=== PATIENT | male | born 1955 | race Caucasian/White ===

== ENCOUNTER → 2020-07-11 14:55 | Outpatient (CLI) | payer OTHER, SELFPAY ==
--- NOTE | 2020-07-11 15:01 | DI.RAD.S_ITS ---
PROCEDURE: XR THORACIC SPINE 2V INDICATIONS: BACK PAIN TECHNIQUE: 3 views of the thoracic spine were acquired. COMPARISON: None. FINDINGS: Bones: No fractures or dislocations. No suspicious bony lesions. 12 pairs of ribs are noted, and appear intact where visualized. Trace dextroscoliosis centered at the mid to lower thoracic level. Mild multilevel disc degeneration. Soft tissues: No paravertebral stripe thickening. IMPRESSION: Mild multilevel disc degeneration. Dictated by: Kyle Joy [facility] Interpreted: Yuliya Bailey MD on 07/11/2020 at 15:31 Approved by: Yuliya Bailey MD, PhD on 07/11/2020 at 16:29
== END ==
PROVIDERS: PCP Nurse Practitioner Family; Referring Provider Nurse Practitioner Family; Visit Provider Nurse Practitioner Family
DX: M51.34 Other intervertebral disc degeneration, thoracic region (principal)
CPT/HCPCS: 72070

== ENCOUNTER → 2020-07-29 13:43 | Outpatient (CLI) | payer OTHER, SELFPAY ==
--- NOTE | 2020-07-29 | DI.ECHO.S_ITS ---
[facility] +---------+ : : [address] : [place] : : : : [id number] : : : : Phone: [phone] Echocardiogram Report + + :Name: JESSE CRAWFORD Study Date: 07/29/2020 Height: 69 in : :[facility] ReadingLocation: Weight: 165 lb : : Gender: Male BSA: 1.9 m2 : :: 1955 Age: 64 yrs BP: 169/96 mmHg: :Reason For Study: ATRIAL PREMATURE DEPOLARIZATION : :Ordering Physician: THOMPSON BHAT Performed By: Ashley Irwin : :Referring: THOMPSON BHTA : + + Interpretation Summary The left ventricle is normal in size and wall thickness. Left ventricular systolic function appears normal without focal wall motion abnormalities. The ejection fraction is estimated to be 60-65%. Diastolic parameters suggest probable normal left ventricular diastolic function and normal filling pressures. The right ventricle is normal in size and function. Pulmonary artery pressures cannot be estimated because of the lack of a measurable TR jet velocity but the IVC suggests a CVP of around 3 mmHg. Right atrial size is normal. The left atrium is borderline dilated. There is mild mitral regurgitation. There is no other significant valvular heart disease. The aortic root is normal size. Procedure: A two-dimensional transthoracic echocardiogram with color flow and Doppler was performed. The study quality was technically adequate. There is no prior echocardiogram noted for this patient. The patient had frequent PACs during the exam. The heart rate ranged between 60-78 bpm during the study. Left Ventricle: The left ventricle is normal in size and wall thickness. Left ventricular systolic function appears normal without focal wall motion abnormalities. The ejection fraction is estimated to be 60-65%. Diastolic parameters suggest probable normal left ventricular diastolic function and normal filling pressures. Right Ventricle: The right ventricle is normal in size and function. Atria: The left atrium is borderline dilated. Right atrial size is normal. There is no Doppler evidence for an interatrial shunt. Mitral Valve: The mitral valve is normal in structure and function. There is mild mitral regurgitation. Aortic Valve: The aortic valve is trileaflet. The aortic valve opens well. There is no aortic valve stenosis. There is trace aortic regurgitation. Tricuspid Valve: The tricuspid valve is normal in structure and function. There is trace tricuspid regurgitation. Pulmonary artery pressures cannot be estimated because of the lack of a measurable TR jet velocity but the IVC suggests a CVP of around 3 mmHg. Pulmonic Valve: The pulmonic valve leaflets are thin and pliable; valve motion is normal. There is no pulmonic valvular regurgitation. There is no other significant valvular heart disease. Great Vessels: The aortic root is normal size. The dimensions of the ascending aorta are normal. The IVC is of normal diameter and collapses greater than 50% with a sniff. This suggests a low right atrial pressure of 3 mm Hg. Pericardium/ Pleura There is no pericardial effusion. There is no pleural effusion. MMode/2D Measurements & Calculations LVIDd: 4.8 cm LVOT diam: 2.2 cm LVIDs: 3.3 cm Ao root diam: 3.1 cm FS: 32.7 % asc Aorta Diam: 3.3 cm EPSS: 0.75 cm Ao Arch Diam (Prox Trans): 2.4 cm IVSd: 1.0 cm LVPWd: 0.87 cm LV pradhan. diameter/BSA (cm/m^2): 2.5 LV sys. diameter/BSA (cm/m^2): 1.7 LA A2 area: 20.0 cm2 RA long axis: 4.9 cm LA A4 area: 16.3 cm2 RA area: 16.8 cm2 LA length (vol): 4.4 cm RA vol: 48.7 ml LA vol: 62.6 ml RA : 25.6 ml/m2 LA vol index: 32.9 ml/m2 IVC diam: 1.3 cm RVD1 (basal): 3.2 cm TAPSE: 1.8 cm Doppler Measurements & Calculations Ao V2 max: 116.8 cm/sec LVOT Max Mehran: 69.5 cm/sec Ao V2 mean: 80.5 cm/sec LV V1 max P.9 mmHg Ao max P.5 mmHg LV V1 VTI: 15.2 cm Ao mean P.0 mmHg MIGEL(I,D): 2.3 cm2 Ao V2 VTI: 24.3 cm MIGEL(V,D): 2.2 cm2 sev ratio: 0.62 MIGEL indexed to BSA (cm^2/m^2): 1.2 MV E max mehran: 59.5 cm/sec PA V2 max: 95.1 cm/sec MV A max mehran: 59.5 cm/sec PA V2 mean: 69.1 cm/sec MV E/A: 1.0 PA mean P.2 mmHg Med Peak E' Mehran: 8.2 cm/sec PA pr(Accel): 29.3 mmHg E/E' med: 7.3 Lat Peak E' Mehran: 6.4 cm/sec E/E' lat: 9.3 E/e' average: 8.3 MV dec time: 0.21 sec SV(LVOT): 55.6 ml Reading Physician:07:30 PM
== END ==
PROVIDERS: PCP Nurse Practitioner Family; Referring Provider Nurse Practitioner Family; Visit Provider Nurse Practitioner Family
DX: I34.0 Nonrheumatic mitral (valve) insufficiency (principal); I49.1 Atrial premature depolarization
CPT/HCPCS: 93306

== ENCOUNTER 2022-02-17 15:39 | Emergency (ER) | payer OTHER, SELFPAY ==
[2022-02-17 15:42] VITALS: PULSE 62; RESP 20; TEMP 36.6; O2SAT 99
--- NOTE | 2022-02-17 15:53 | DI.RAD.S_ITS ---
PROCEDURE: XR CHEST 1V INDICATIONS: chest pain TECHNIQUE: One view of the chest was acquired. COMPARISON: None. FINDINGS: Surgical changes and devices: None. Lungs and pleura: Lungs are clear. No pleural effusions or pneumothorax. Mediastinum: Mediastinal contours appear normal. Heart size is normal. Bones and chest wall: No suspicious bony lesions. Overlying soft tissues appear unremarkable. IMPRESSION: No acute cardiopulmonary findings Approved by: Arya Villafuerte M.D. on 02/17/2022 at 16:26
[2022-02-17 15:57] VITALS: BP 211/104
[2022-02-17 16:07] LABS: Add Manual Diff / Slide Review NO; Basophils Absolute Auto 0 /uL (0-100); Basophils Percent Auto 0.5 % (0-2); Eosinophils Absolute Auto 200 /uL (0-450); Hematocrit 43.6 % (41-53); Lymphocytes Absolute Auto 2500 /uL (1100-4500); Lymphocytes Percent Auto 26.7 % (25-40); Mean Corpuscular HGB Conc 34.5 % (30-36); Mean Corpuscular Hemoglobin 30.3 PG (26-34); Mean Corpuscular Volume 87.8 fL (80-100); Monocytes Absolute Auto 900 /uL (0-900); Monocytes Percent Auto 9.2 % (3-14); Neutrophils Absolute Auto 5900 /uL (1500-7000); Neutrophils Percent Auto 61.6 % (50-75); Platelet Count 303 X10^3/uL (150-400); Red Blood Cell Count 4.97 X10^6/uL (4.5-5.9); Red Cell Distribution Width 12.3 % (11.6-14.8); White Blood Cell Count 9.5 X10^3/uL (4.5-11.0)
[2022-02-17 16:24] LABS: Alanine Aminotransferase 26 IU/L (<50); Albumin 4.6 g/dL (3.5-5.0); Albumin Globulin Ratio 1.4 (1.0-2.8); Alkaline Phosphatase 102 U/L (38-126); Aspartate Aminotransferase 33 IU/L (17-59); BUN Creatinine Ratio 21.6 (6-22); Bilirubin Total 0.4 mg/dL (0.2-1.3); Blood Urea Nitrogen 19 mg/dL (9-20); Calcium 9.1 mg/dL (8.4-10.2); Carbon Dioxide 24 mmol/L (22-32); Chloride 102 mmol/L (98-107); Creatine Kinase 60 U/L (55-170); Estimated Glomerular Filt Rate > 60 mL/min (>60); Globulin 3.4 g/dL (1.7-4.1); Glucose 88 mg/dL (80-110); HEMOLYSIS < 15 (0-50); Lipase 178 U/L (23-300); Magnesium 2.1 mg/dL (1.6-2.3); Sodium 139 mmol/L (137-145)
[2022-02-17 16:35] LABS: Troponin I < 0.012 ng/mL (0.01-0.034)
--- NOTE | 2022-02-17 16:38 | ED_ITS ---
HPI - Chest Pain <JONE Oquendo - Last Filed: 02/17/22 20:29> General Chief Complaint: Chest Pain Stated Complaint: Heart attack symptoms Time Seen by Provider: 02/17/22 16:24 Source: patient Mode of arrival: Ambulatory History of Present Illness HPI narrative: This is a 66-year-old male with history of hyperlipidemia, hypertension who presents to the emergency department with acute onset of chest pressure, tingling to his fingertips bilaterally, and scalp during this episode chest pressure. He states this happened just prior to his arrival after an episode of resting on the couch, he stood up and felt this sensation. He states that this has never happened to him before he takes losartan 25 mg q.h.s. between 6 and 20:00, has not taken his dose today. He denies history of blood clot or cardiac event in the past. He is currently hypertensive in triage he was 211/104, currently he is 194/106. Related Data Home Medications Medication Instructions Recorded Confirmed atorvastatin 10 mg tablet 10 mg PO DAILY 10/30/20 10/30/20 losartan 25 mg tablet 25 mg PO DAILY 10/30/20 10/30/20 tamsulosin 0.4 mg capsule (Flomax) 0.4 mg PO DAILY 10/30/20 10/30/20 Allergies Allergy/AdvReac Type Severity Reaction Status Date / Time No Known Drug Allergies Allergy Verified 11/05/18 09:54 Patient History <JONE Oquendo - Last Filed: 02/17/22 20:29> Medical History (Updated 02/17/22 @ 18:45 by JONE Oquendo) Erectile dysfunction due to psychophysiologic disorder Nocturia Surgical History Hx of circumcision Social History marital status: occupational status: employed Smoking Status: Never smoker alcohol intake: current Type(s) of exercise: weight lifting frequency: 3-4 times per week Smoking Status: Never smoker alcohol intake frequency: 0-2 drinks per day Exam <JONE Oquendo - Last Filed: 02/17/22 20:29> Initial Vital Signs Initial Vital Signs: Vital Signs Temperature 97.9 F 02/17/22 15:42 Pulse Rate 62 02/17/22 15:42 Respiratory Rate 20 02/17/22 15:42 Pulse Oximetry 99 02/17/22 15:42 Oxygen Delivery Method 02/17/22 15:42 <Otoniel Aguiar DO - Last Filed: 02/20/22 17:56> Initial Vital Signs Initial Vital Signs: Vital Signs Temperature 97.9 F 02/17/22 15:42 Pulse Rate 62 02/17/22 15:42 Respiratory Rate 20 02/17/22 15:42 Pulse Oximetry 99 02/17/22 15:42 Oxygen Delivery Method 02/17/22 15:42 Scores <JONE Oquendo - Last Filed: 02/17/22 20:29> HEART Score Heart Score history: Moderately Suspicious Heart Score EKG: Normal Heart Score Age: 45-64 years old Heart Score risk factors: 1-2 risk factors Heart Score troponin: < or = to normal limit Heart Score Total: 3 PERC Score Age greater than or equal to 50 years: Yes Heart rate greater than or equal to 100 bpm: No Room Air O2 Sat less than 95%: No Unilateral leg swelling: No Recent trauma or surgery: No Hemoptysis: No Prior PE or DVT: No Hormone Use: No Total PERC Score: 1 Wells' Criteria for PE Clinical signs and symptoms of DVT: No PE is #1 Dx or equally likely: No <Otoniel Aguiar DO - Last Filed: 02/20/22 17:56> HEART Score Heart Score Total: 3 PERC Score Total PERC Score: 1 Course <JONE Oquendo - Last Filed: 02/17/22 20:29> Orders Ordered: Discontinued Medications Aspirin (Aspirin 325 Mg Tablet) 325 mg PO NOW ONE Stop: 02/17/22 16:38 Last Admin: 02/17/22 16:54 Dose: Not Given Documented By: RAJ Aspirin (Aspirin 81 Mg Chew Tab) 324 mg PO NOW ONE Stop: 02/17/22 16:52 Last Admin: 02/17/22 17:01 Dose: 324 mg Documented By: JAVIER Losartan Potassium (Losartan 25 Mg Tablet) 25 mg PO NOW ONE Stop: 02/17/22 16:38 Last Admin: 02/17/22 17:01 Dose: 25 mg Documented By: JAVIER Vital Signs Vital signs: Vital Signs - 8 hr 02/17/22 15:42 02/17/22 15:57 02/17/22 17:01 Temperature 97.9 F Pulse Rate 62 50 L Respiratory Rate 20 Blood Pressure 211/104 H 197/93 H Pulse Oximetry 99 Oxygen Delivery Method Room Air 02/17/22 17:05 02/17/22 17:45 02/17/22 20:07 Temperature Pulse Rate 50 L 55 L 80 Respiratory Rate 20 12 16 Blood Pressure 197/93 H 187/90 H 190/80 H Pulse Oximetry 97 99 99 Oxygen Delivery Method Room Air Room Air Room Air <Otoniel Aguiar DO - Last Filed: 02/20/22 17:56> Orders Ordered: Discontinued Medications Aspirin (Aspirin 325 Mg Tablet) 325 mg PO NOW ONE Stop: 02/17/22 16:38 Last Admin: 02/17/22 16:54 Dose: Not Given Documented By: RAJ Aspirin (Aspirin 81 Mg Chew Tab) 324 mg PO NOW ONE Stop: 02/17/22 16:52 Last Admin: 02/17/22 17:01 Dose: 324 mg Documented By: JAVIER Losartan Potassium (Losartan 25 Mg Tablet) 25 mg PO NOW ONE Stop: 02/17/22 16:38 Last Admin: 02/17/22 17:01 Dose: 25 mg Documented By: JAVIER Vital Signs Vital signs: Vital Signs - 8 hr 02/17/22 15:42 02/17/22 15:57 02/17/22 17:01 Temperature 97.9 F Pulse Rate 62 50 L Respiratory Rate 20 Blood Pressure 211/104 H 197/93 H Pulse Oximetry 99 Oxygen Delivery Method Room Air 02/17/22 17:05 02/17/22 17:45 02/17/22 20:07 Temperature Pulse Rate 50 L 55 L 80 Respiratory Rate 20 12 16 Blood Pressure 197/93 H 187/90 H 190/80 H Pulse Oximetry 97 99 99 Oxygen Delivery Method Room Air Room Air Room Air MDM - Chest Pain <JONE Oquendo - Last Filed: 02/17/22 20:29> Lab Data Result diagrams: 02/17/22 15:50 02/17/22 15:50 Labs: Lab Results 02/17/22 02/17/22 02/17/22 Range/Units 15:50 15:50 15:50 WBC 9.5 (4.5-11.0) X10^3/uL RBC 4.97 (4.5-5.9) X10^6/uL Hgb 15.0 (13.5-17.5) g/dL Hct 43.6 (41-53) % MCV 87.8 (80-100) fL MCH 30.3 (26-34) PG MCHC 34.5 (30-36) % RDW 12.3 (11.6-14.8) % Plt Count 303 (150-400) X10^3/uL Neut % (Auto) 61.6 (50-75) % Lymph % (Auto) 26.7 (25-40) % [place] % (Auto) 9.2 (3-14) % Eos % (Auto) 2.0 (2-4) % Baso % (Auto) 0.5 (0-2) % Neut # (Auto) 5900 (1855-7828) /uL Lymph # (Auto) 2500 (4449-0909) /uL [place] # (Auto) 900 (0-900) /uL Eos # (Auto) 200 (0-450) /uL Baso # (Auto) 0 (0-100) /uL D-Dimer 756 H (<500) ng/ml Sodium 139 (137-145) mmol/L Potassium 4.0 (3.4-5.1) mmol/L Chloride 102 (98-107) mmol/L Carbon Dioxide 24 (22-32) mmol/L BUN 19 (9-20) mg/dL Creatinine 0.88 (0.66-1.25) mg/dL Estimated GFR > 60 (>60) mL/min BUN/Creatinine Ratio 21.6 (6-22) Glucose 88 (80-110) mg/dL Calcium 9.1 (8.4-10.2) mg/dL Magnesium 2.1 (1.6-2.3) mg/dL Total Bilirubin 0.4 (0.2-1.3) mg/dL AST 33 (17-59) IU/L ALT 26 (<50) IU/L Alkaline Phosphatase 102 (38-126) U/L Total Creatine Kinase 60 (55-170) U/L CK-MB (CK-2) TNP CK-MB (CK-2) Rel Index TNP Troponin I < 0.012 (0.01-0.034) ng/mL NT-Pro-B Natriuret Pep (<125) pg/mL Total Protein 8.0 (6.3-8.2) g/dL Albumin 4.6 (3.5-5.0) g/dL Globulin 3.4 (1.7-4.1) g/dL Albumin/Globulin Ratio 1.4 (1.0-2.8) Lipase 178 (23-300) U/L 02/17/22 02/17/22 Range/Units 15:50 18:10 WBC (4.5-11.0) X10^3/uL RBC (4.5-5.9) X10^6/uL Hgb (13.5-17.5) g/dL Hct (41-53) % MCV (80-100) fL MCH (26-34) PG MCHC (30-36) % RDW (11.6-14.8) % Plt Count (150-400) X10^3/uL Neut % (Auto) (50-75) % Lymph % (Auto) (25-40) % [place] % (Auto) (3-14) % Eos % (Auto) (2-4) % Baso % (Auto) (0-2) % Neut # (Auto) (5365-7072) /uL Lymph # (Auto) (4380-1376) /uL [place] # (Auto) (0-900) /uL Eos # (Auto) (0-450) /uL Baso # (Auto) (0-100) /uL D-Dimer (<500) ng/ml Sodium (137-145) mmol/L Potassium (3.4-5.1) mmol/L Chloride (98-107) mmol/L Carbon Dioxide (22-32) mmol/L BUN (9-20) mg/dL Creatinine (0.66-1.25) mg/dL Estimated GFR (>60) mL/min BUN/Creatinine Ratio (6-22) Glucose (80-110) mg/dL Calcium (8.4-10.2) mg/dL Magnesium (1.6-2.3) mg/dL Total Bilirubin (0.2-1.3) mg/dL AST (17-59) IU/L ALT (<50) IU/L Alkaline Phosphatase (38-126) U/L Total Creatine Kinase 63 (55-170) U/L CK-MB (CK-2) TNP CK-MB (CK-2) Rel Index TNP Troponin I < 0.012 (0.01-0.034) ng/mL NT-Pro-B Natriuret Pep 70 (<125) pg/mL Total Protein (6.3-8.2) g/dL Albumin (3.5-5.0) g/dL Globulin (1.7-4.1) g/dL Albumin/Globulin Ratio (1.0-2.8) Lipase (23-300) U/L Imaging Data Chest x-ray: Radiologist's Impression: PROCEDURE:? XR CHEST 1V ? INDICATIONS:? chest pain ? TECHNIQUE:? One view of the chest was acquired.? ? COMPARISON:? None. ? FINDINGS:? ? Surgical changes and devices:? None.? ? Lungs and pleura:? Lungs are clear.? No pleural effusions or pneumothorax.? ? Mediastinum:? Mediastinal contours appear normal.? Heart size is normal.? ? Bones and chest wall:? No suspicious bony lesions.? Overlying soft tissues appear unremarkable.? ? IMPRESSION:? No acute cardiopulmonary findings ? ? ? Approved by: Arya Villafuerte M.D. on 02/17/2022 at 16:26? Chest CTA: Radiologist's Impression: There was an error with CTA report, initially the wrong patient's report was a ppended to the chart. This has now since been resolved but is unable to be appended from [email or web address]. Impression from the CTA chest is unremarkable CT angiogram of the chest without evidence of pulmonary embolism, aortic dissection or aneurysm. Colonic diverticulosis and gaseous distention of the small bowel in the upper left quadrant may reflect ileus or enteritis, partially imaged. Discussion with patient about potential gasseous bowel or abdominal complaint, and he states that he had a salad and has had gas today and yesterday but denies any abdominal pain, did not have right upper quadrant tenderness, ECG Data Interpretation: EKG independently reviewed by myself at 1622 bradycardic arrhythmia with a rate of 58 bpm with regular axis and, first-degree block, otherwise normal intervals, no ST elevation or depression. No STEMI, ST segment changes, arrhythmia, or acute ischemic changes. EKG independently reviewed by myself at 1805 reveals sinus bradycardia with PACs, regular axis and intervals. No STEMI, ST segment changes, arrhythmia, or acute ischemic changes. MDM Narrative Medical decision making narrative: This is a 66-year-old male presents to the emergency department who is a patient of Dr. Oneill and presents with acute onset of chest pressure while he was laying on the couch without radiation of his pain. He states that he felt tingling in his bilateral fingertips, and on his scalp but denied any nausea, vomiting, shortness of breath, difficulty breathing or jaw pain. Patient endorses having diaphoresis and his story is convincing, he has a history of hyperlipidemia and hypertension, takes atorvastatin and losartan at baseline. He was given 324 of aspirin in the emergency department and 25 mg of losartan for hypertension when he arrived with systolics over 200. Patient had a convincing story, his heart score is evaluated to be 3 today, his D-dimer was mildly elevated at 756, this is clinically pertinent as his age adjusted D-dimer cut off is 640. Patient endorses that he had a workout yesterday that was moderately strenuous. His lab work overall is reassuring, his 1st troponin was negative, his 2nd troponin was negative, both of his EKGs do not show any ST changes, initial EKG showed PACs, sinus bradycardia and otherwise normal rate. He was hypertensive today in the emergency department, his BNP was 70, lipase of 178, no leukocytosis, anemia, electrolyte abnormalities or elevation to total CK. Patient denies any urinary complaints. CT angio of his chest was negative for PE. There was an error with a bloating his report, initially the radiologist post of the wrong patient's report to his chart, this was fixed and patient was updated by his result prior to discharge. Discuss patient's risk stratification with him, encouraged him to schedule an appointment with Dr. Francis for follow-up, he may benefit from a stress test since he is not had 1 in the past. Patient's lab work otherwise is reassuring, recommend taking his losartan 25 mg in the a.m., and checking his blood pressure both a.m. and p.m., if he is over 180 in the evening I encouraged him to take half of a tab of losartan at night in addition to his other medications and follow-up with Dr. Francis about a plan to manage his hypertension. Tonight I encouraged him to take a 2nd dose of his 25 mg of losartan because whe n he was discharged his blood pressure was still 190/80. He does not have any other symptoms associated with this at this time. Multiple causes of chest pain considered including UT, PE, pneumothorax, pneumonia, aortic dissection, and pleurisy. Patient reports no radiation, no diaphoresis, no provocation with exertion, and no vomiting Patient is appropriate and amenable to discharge home. Vital signs are stable on repeat examination is unremarkable. Patient has been informed of results. Patient has been given strict return to ER precautions for any new or worsening symptoms. Patient understands to follow up closely with outpatient providers as instructed. Patient understands plan and agrees to discharge home. All questions and concerns answered at this time. Age-Adjusted D-dimer for Venous Thromboembolism (VTE) from [employer] on 02/17/2022 All calculations should be rechecked by clinician prior to use RESULT SUMMARY: 640 ?g/L Age-adjusted D-dimer cutoff, FEU VTE possible Reported D-dimer is greater than cutoff; consider confirmatory testing with CTA or V/Q scan INPUTS: Age ?> 66 years D-dimer level reported by lab ?> 756 ?g/L D-dimer unit type ?> 1 = FEU (unadjusted cutoff typically ~500 or 0.50) <Otoniel Aguiar, DO - Last Filed: 02/20/22 17:56> Lab Data Labs: Lab Results 02/17/22 02/17/22 02/17/22 Range/Units 15:50 15:50 15:50 WBC 9.5 (4.5-11.0) X10^3/uL RBC 4.97 (4.5-5.9) X10^6/uL Hgb 15.0 (13.5-17.5) g/dL Hct 43.6 (41-53) % MCV 87.8 (80-100) fL MCH 30.3 (26-34) PG MCHC 34.5 (30-36) % RDW 12.3 (11.6-14.8) % Plt Count 303 (150-400) X10^3/uL Neut % (Auto) 61.6 (50-75) % Lymph % (Auto) 26.7 (25-40) % [place] % (Auto) 9.2 (3-14) % Eos % (Auto) 2.0 (2-4) % Baso % (Auto) 0.5 (0-2) % Neut # (Auto) 5900 (5401-5235) /uL Lymph # (Auto) 2500 (8889-4066) /uL [place] # (Auto) 900 (0-900) /uL Eos # (Auto) 200 (0-450) /uL Baso # (Auto) 0 (0-100) /uL D-Dimer 756 H (<500) ng/ml Sodium 139 (137-145) mmol/L Potassium 4.0 (3.4-5.1) mmol/L Chloride 102 (98-107) mmol/L Carbon Dioxide 24 (22-32) mmol/L BUN 19 (9-20) mg/dL Creatinine 0.88 (0.66-1.25) mg/dL Estimated GFR > 60 (>60) mL/min BUN/Creatinine Ratio 21.6 (6-22) Glucose 88 (80-110) mg/dL Calcium 9.1 (8.4-10.2) mg/dL Magnesium 2.1 (1.6-2.3) mg/dL Total Bilirubin 0.4 (0.2-1.3) mg/dL AST 33 (17-59) IU/L ALT 26 (<50) IU/L Alkaline Phosphatase 102 (38-126) U/L Total Creatine Kinase 60 (55-170) U/L CK-MB (CK-2) TNP CK-MB (CK-2) Rel Index TNP Troponin I < 0.012 (0.01-0.034) ng/mL NT-Pro-B Natriuret Pep (<125) pg/mL Total Protein 8.0 (6.3-8.2) g/dL Albumin 4.6 (3.5-5.0) g/dL Globulin 3.4 (1.7-4.1) g/dL Albumin/Globulin Ratio 1.4 (1.0-2.8) Lipase 178 (23-300) U/L 02/17/22 02/17/22 Range/Units 15:50 18:10 WBC (4.5-11.0) X10^3/uL RBC (4.5-5.9) X10^6/uL Hgb (13.5-17.5) g/dL Hct (41-53) % MCV (80-100) fL MCH (26-34) PG MCHC (30-36) % RDW (11.6-14.8) % Plt Count (150-400) X10^3/uL Neut % (Auto) (50-75) % Lymph % (Auto) (25-40) % [place] % (Auto) (3-14) % Eos % (Auto) (2-4) % Baso % (Auto) (0-2) % Neut # (Auto) (7640-2863) /uL Lymph # (Auto) (1304-6291) /uL [place] # (Auto) (0-900) /uL Eos # (Auto) (0-450) /uL Baso # (Auto) (0-100) /uL D-Dimer (<500) ng/ml Sodium (137-145) mmol/L Potassium (3.4-5.1) mmol/L Chloride (98-107) mmol/L Carbon Dioxide (22-32) mmol/L BUN (9-20) mg/dL Creatinine (0.66-1.25) mg/dL Estimated GFR (>60) mL/min BUN/Creatinine Ratio (6-22) Glucose (80-110) mg/dL Calcium (8.4-10.2) mg/dL Magnesium (1.6-2.3) mg/dL Total Bilirubin (0.2-1.3) mg/dL AST (17-59) IU/L ALT (<50) IU/L Alkaline Phosphatase (38-126) U/L Total Creatine Kinase 63 (55-170) U/L CK-MB (CK-2) TNP CK-MB (CK-2) Rel Index TNP Troponin I < 0.012 (0.01-0.034) ng/mL NT-Pro-B Natriuret Pep 70 (<125) pg/mL Total Protein (6.3-8.2) g/dL Albumin (3.5-5.0) g/dL Globulin (1.7-4.1) g/dL Albumin/Globulin Ratio (1.0-2.8) Lipase (23-300) U/L Discharge Plan Departure Patient Disposition: Home Clinical Impression: Chest pressure, D-dimer, elevated Hypertension Qualifiers: Hypertension type: unspecified Qualified Code(s): I10 - Essential (primary) hypertension Instructions: DI for Angina, DI for Chest Pain Activity Restrictions/Additional Instructions: *You have been diagnosed with a convincing chest pressure episode of concern without any concerning findings on your workup today. Thank you for your patients, I noticed took a long time. Overall, your workup is very reassuring, your EKG shows sinus rhythm with PACs. There is no signs of strain of your heart on your lab work, no signs of heart failure, your D-dimer was mildly elevated which can occur for a number of reasons. Hence the reason why you had a CT of your chest looking for a blood clot. This was negative, and great news. Please follow up with Dr. Oneill about the indications for a stress test and follow-up or additional testing. The scan of your chest did not show any concerning findings, blood clot, or pneumonia. Both of your troponins were negative for signs of heart strain, We were unable to determine the cause of your chest pain today, it does not appear dangerous to be discharged home at this time and risk stratification can be further managed by your primary care provider. Thank you for waiting for all of this information, if your blood pressure remains 180s or 170s when you get home, okay to take your nighttime losartan. *What to do: *Please continue to take your regular medications as directed. [ ] New medication prescriptions sent to your pharmacy: [ ] [ ] New medication written as a paper prescription [x ] No new medications given *Please follow up with your primary care provider in 2-3 days, call for an appointment. Let them know you were seen in the Emergency Department and that we asked that you be seen for follow-up. We will electronically transmit a record of today's note if your PCP is in our system *If you do not have a primary care provider please contact [phone] to establish care with one of the [facility] primary care providers. *Return to Emergency Department if you should have any new, worsening, or concerning symptoms, such as [fever greater than 101F, chills, worsening pain, persistent vomiting or other bothersome symptoms]. Prescriptions: No Action losartan 25 mg tablet 25 mg PO DAILY atorvastatin 10 mg tablet 10 mg PO DAILY tamsulosin [Flomax] 0.4 mg capsule 0.4 mg PO DAILY Referrals: Chiara Weinstein ARNP [Primary Care Provider] - Sushant Oneill MD [Physician] - Visit Report Forms: Patient Portal/API <Otoniel Aguiar DO - Last Filed: 02/20/22 17:56> Cosign ED Attending Cosignature Attestation: Dr Aguiar Co-Sign Statement: I was available for consultation during this patient's emergency department visit. This chart is signed by myself for administrative purposes only. I did not have direct contact with this patient during this visit. They were seen independently by the APC.
[2022-02-17 17:01] VITALS: BP 197/93; PULSE 50
[2022-02-17] MEDS: LOSARTAN 25 MG TABLET PO (17:01)
[2022-02-17] MEDS: ASPIRIN 81 MG CHEW TAB 324 MG PO (17:01)
[2022-02-17 17:04] LABS: D Dimer 756 ng/ml (<500)
[2022-02-17 17:05] VITALS: BP 197/93; PULSE 50; RESP 20; O2SAT 97
[2022-02-17 17:18] LABS: NT-proBNP (BNP-Adult 18+) 70 pg/mL (<125)
--- NOTE | 2022-02-17 17:28 | DI.CT.S_ITS ---
PROCEDURE: CT ANGIO CHEST PE PROTOCOL INDICATIONS: concern for PE TECHNIQUE: After the administration of intravenous contrast, 2 mm thick sections acquired from the pulmonary apices to the posterior costophrenic angles. 3-dimensional maximum intensity projection (MIP) coronal and sagittal reformats were then acquired through the thorax. For radiation dose reduction, the following was used: automated exposure control, adjustment of mA and/or kV according to patient size. COMPARISON: None. FINDINGS: Image quality: Excellent. Pulmonary arteries: Pulmonary arteries are normal in size, and demonstrate no intraluminal filling defects to suggest central pulmonary embolism. Lungs and pleura: Emphysematous changes noted without focal infiltrate. Calcified granulomas noted on the right Mediastinum: Heart size is enlarged, without pericardial effusion. No mediastinal or hilar adenopathy. Thoracic aorta is normal in caliber and enhancement. Esophagus is normal in caliber, without hiatal hernia. Bones and chest wall: No suspicious bony lesions. Ribs and thoracic spine appear intact throughout. Thyroid gland unremarkable. No axillary or supraclavicular adenopathy. Biventricular cardiac pacemaker/defibrillator in place. 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 IMPRESSION: 1. No evidence of pulmonary embolism, aortic dissection or aneurysm. 2. Cardiomegaly and biventricular left-sided pacemaker/defibrillator. 3. Pulmonary emphysema without focal infiltrate, pneumothorax pleural effusion Approved by: Arya Villafuerte M.D. on 02/17/2022 at 17:47
--- NOTE | 2022-02-17 17:28 | DI.CT.S_ITS ---
PROCEDURE: CT ANGIO CHEST PE PROTOCOL INDICATIONS: POSSIBLE PE, short of breath TECHNIQUE: After the administration of intravenous contrast, 2 mm thick sections acquired from the pulmonary apices to the posterior costophrenic angles. For radiation dose reduction, the following was used: automated exposure control, adjustment of mA and/or kV according to patient size. COMPARISON: None. FINDINGS: Image quality: Excellent. Pulmonary arteries: Pulmonary arteries are normal in size, and demonstrate no intraluminal filling defects to suggest central pulmonary embolism. Lungs and pleura: Lungs are clear. No pleural effusions or pneumothorax. Central and peripheral airways are patent. Mediastinum: Heart size is normal, without pericardial effusion. No mediastinal or hilar adenopathy. Thoracic aorta is normal in caliber and enhancement. Esophagus is normal in caliber, without hiatal hernia. Bones and chest wall: No suspicious bony lesions. Ribs and thoracic spine appear intact throughout. Thyroid gland unremarkable. No axillary or supraclavicular adenopathy. Abdomen: Several diverticula arise from the right colon. Prominent small bowel loops noted in the left upper quadrant partially imaged. IMPRESSION: 1. Unremarkable CT angiogram of the chest without evidence of pulmonary embolism, aortic dissection or aneurysm. 2. Colonic diverticulosis and gaseous distension of small bowel in the left upper quadrant may reflect ileus or enteritis, partially imaged Approved by: Arya Villafuerte M.D. on 02/17/2022 at 18:20
[2022-02-17 17:45] VITALS: BP 187/90; PULSE 55; RESP 12; O2SAT 99
[2022-02-17 18:27] LABS: Creatine Kinase 63 U/L (55-170)
[2022-02-17 18:40] LABS: Troponin I < 0.012 ng/mL (0.01-0.034)
[2022-02-17 20:07] VITALS: BP 190/80; PULSE 80; RESP 16; O2SAT 99
== END 2022-02-17 20:09 | disposition home or self-care (01) ==
PROVIDERS: Emergency Medicine; Emergency Provider Nurse Practitioner Critical Care Medicine; PCP Nurse Practitioner Family
DX: R07.9 Chest pain, unspecified (principal); I10 Essential (primary) hypertension; R79.89 Other specified abnormal findings of blood chemistry; Z79.899 Other long term (current) drug therapy
CPT/HCPCS: 36415; 71045; 71275; 80053; 82550; 83690; 83735; 83880; 84484; 85025; 85379; 93005; 93010; 99284; Q9967

== ENCOUNTER → 2024-07-23 09:24 | Outpatient (CLI) | payer OTHER, SELFPAY ==
--- NOTE | 2024-07-23 09:26 | DI.RAD.S_ITS ---
PROCEDURE: XR FINGER LT MIN 2V INDICATIONS: Unspecified injury of left wrist, hand and finger(s), initia TECHNIQUE: AP hand, 2 views of the left 3rd finger (s) acquired. COMPARISON: None. FINDINGS: Bones: There are no osseous abnormalities Joints: The joint spaces are normal in width and alignment without arthritic change. Soft tissues: No soft tissue abnormality. IMPRESSION: Normal. Dictated by: Artie Hay M.D. on 07/24/2024 at 7:39 Approved by: Artie Hya M.D. on 07/24/2024 at 7:41
== END ==
LOC: RAD 09:25
PROVIDERS: PCP Family Medicine; Referring Provider Family Medicine; Visit Provider Family Medicine
DX: S69.92XA Unspecified injury of left wrist, hand and finger(s), initial encounter (principal); X58.XXXA Exposure to other specified factors, initial encounter
CPT/HCPCS: 73140